=== PATIENT | male | born 1960 | race Caucasian/White ===

== ENCOUNTER 2020-08-09 17:41 | Emergency (ER) | payer BC ==
[~2020-08-09] VITALS: Ht 185.4 cm; Wt 86.4 kg
[2020-08-09 19:48] LABS: BASO # 0.1 x10^3/uL (0.0-0.2); BASO % 1 % (0-3); EOS # 0.3 x10^3/uL (0.0-0.7); EOS % 4 % (0-3); HEMATOCRIT 43.3 % (39.0-53.0); HEMOGLOBIN 14.7 g/dL (13.0-17.5); LYMPH # 2.8 x10^3/uL (1.0-4.8); LYMPH % 35 % (24-48); MEAN CORPUSCULAR HEMOGLOBIN 29 pg (25-35); MEAN CORPUSCULAR HGB CONC 34 g/dL (31-37); MEAN CORPUSCULAR VOLUME 86 fL (79-100); MONO # 0.7 x10^3/uL (0.0-1.1); MONO % 9 % (0-9); NEUT # 4.2 x10^3/uL (1.8-7.7); NEUT % 52 % (31-73); PLATELET COUNT 268 x10^3/uL (140-400); RED BLOOD COUNT 5.05 x10^6/uL (4.30-5.70); RED CELL DISTRIBUTION WIDTH 14.2 % (11.5-14.5)
--- NOTE | 2020-08-09 19:51 | PHYS DOC ---
General Adult EDM: Chief Complaint: ELBOW PROBLEM HPI: HPI: Patient is a 60 year old male who presents with left elbow swelling for a week. 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 He denies any tenderness. He denies any loss of range of motion or use of the elbow or the arm itself. He denies any pain at this time. Review of Systems: Review of Systems: Constitutional: Denies fever or chills. [] Eyes: Denies change in visual acuity. [] HENT: Denies nasal congestion or sore throat. [] Respiratory: Denies cough or shortness of breath. [] Cardiovascular: Denies chest pain or + left elbow edema. [] GI: Denies abdominal pain, nausea, vomiting, bloody stools or diarrhea. [] : Denies dysuria. [] Musculoskeletal: Denies back pain. + Left elbow joint pain. [] Integument: Denies rash. [] Neurologic: Denies headache, focal weakness or sensory changes. [] Endocrine: Denies polyuria or polydipsia. [] Lymphatic: Denies swollen glands. [] Psychiatric: Denies depression or anxiety. [] Heart Score: C/O Chest Pain: No Risk Factors: Risk Factors: DM, Current or recent (<one month) smoker, HTN, HLP, family history of CAD, obesity. Risk Scores: Score 0 - 3: 2.5% MACE over next 6 weeks - Discharge Home Score 4 - 6: 20.3% MACE over next 6 weeks - Admit for Clinical Observation Score 7 - 10: 72.7% MACE over next 6 weeks - Early Invasive Strategies Physical Exam: PE: Constitutional: Well developed, well nourished, no acute distress, non-toxic appearance. [] HENT: Normocephalic, atraumatic, bilateral external ears normal, oropharynx moist, no oral exudates, nose normal. [] Eyes: PERRLA, EOMI, conjunctiva normal, no discharge. [] Neck: Normal range of motion, no tenderness, supple, no stridor. [] Cardiovascular:Heart rate regular rhythm, no murmur [] Lungs & Thorax: Bilateral breath sounds clear to auscultation [] Abdomen: Bowel sounds normal, soft, no tenderness, no masses, no pulsatile masses. [] Skin: Warm, dry, no erythema, no rash. [] Back: No tenderness, no CVA tenderness. [] Extremities: Left elbow no tenderness, no cyanosis, no clubbing, ROM intact, 2+ edema. [] Neurologic: Alert and oriented X 3, normal motor function, normal sensory function, no focal deficits noted. [] Psychologic: Affect normal, judgement normal, mood normal. [] EKG: EKG: [] Radiology/Procedures: Radiology/Procedures: [] Course & Med Decision Making: Course & Med Decision Making Pertinent Labs and Imaging studies reviewed. (See chart for details) See HPI. There is no redness, heat, tenderness, loss of range of motion. No loss of sensation. Afebrile. Full range of motion. Skin pink warm and dry. 2+ edema to the elbow only. Radial pulse strong and present. Cap refill less than 2 seconds. He [place] currently [place] away [place] [address] Dr. Guillory read the x-ray as a bursitis. Again patient has no signs of a septic joint. [] Dragon Disclaimer: Criss Disclaimer: This electronic medical record was generated, in whole or in part, using a voice recognition dictation system. Departure Departure Impression: Primary Impression: Bursitis Qualified Codes: M70.32 - Other bursitis of elbow, left elbow Disposition: HOME / SELF CARE / HOMELESS Condition: STABLE Referrals: NO PCP (PCP) Patient Instructions: Bursitis, Olecranon Bursitis with Rehab-Sports[facility] Additional Instructions: Follow-up with a orthopedic soon as you get home. Or your primary care. Use ibuprofen up with pain. Ice. I would keep it wrapped. Try not to lean on that elbow at all. If at any point the elbow becomes red, hot and very painful you need to go to emergency room. ZACKERY SHUKLA APRN August 09, 2020 19:51
[2020-08-09 19:56] LABS: CALCIUM 8.5 mg/dL (8.5-10.1); CREATININE 0.9 mg/dL (0.7-1.3); GFR 85.5
[2020-08-09 20:02] LABS: ALBUMIN 3.8 g/dL (3.4-5.0); ALBUMIN/GLOBULIN RATIO 1.2 (1.0-1.7); C-REACTIVE PROTEIN 5.4 mg/L (0-3.3); TOTAL BILIRUBIN 0.5 mg/dL (0.2-1.0); URIC ACID 5.9 mg/dL (3.5-7.2)
--- NOTE | 2020-08-09 22:22 | RAD ---
LEFT ELBOW AP LATERAL AND OBLIQUE Clinical Indication: Reason: SWELLING WITHOUT INJURY Comparison: None. Findings: There is no acute fracture or dislocation. No evidence of joint effusion. Tiny calcifications near the triceps insertion of the olecranon suggest calcific tendinitis. There is no radiopaque foreign body. There is soft tissue swelling medial to the elbow and posterior to the elbow. IMPRESSION: 1. Soft tissue swelling medial and posterior to the elbow. 2. Findings suggest triceps calcific tendinitis. Electronically signed by: Justino Rene MD (08/09/2020 10:20 PM) [facility]
[2020-08-09 23:21] VITALS: BP 145/84
== END 2020-08-09 23:26 | disposition home or self-care (01) ==
LOC: ER 17:41
DX: M70.32 Other bursitis of elbow, left elbow (principal)
CPT/HCPCS: 36415; 73080; 80053; 84550; 85025; 86140; 99284